=== PATIENT | male | born 1985 | race Caucasian/White ===

== ENCOUNTER 2018-12-20 09:30 | Emergency (ER) | payer MEDICAID ==
[~2018-12-20] VITALS: Ht 172.7 cm; Wt 100.7 kg
[2018-12-20 09:40] VITALS: BP 132/89; Ht 172.7 cm; Wt 100.7 kg
== END 2018-12-20 10:17 | disposition home or self-care (01) ==
LOC: ED 09:30
DX: S60.455A Superficial foreign body of left ring finger, initial encounter (principal); W49.04XA Ring or other jewelry causing external constriction, initial encounter; Y93.89 Activity, other specified; Y92.89 Other specified places as the place of occurrence of the external cause; Y99.8 Other external cause status

== ENCOUNTER 2020-06-20 10:54 | Emergency (ER) | payer OTHER ==
[~2020-06-20] VITALS: Ht 172.7 cm; Wt 104.3 kg
[2020-06-20 11:04] VITALS: Ht 172.7 cm; Wt 104.3 kg
[2020-06-20 11:36] LABS: microscopic required? NO
[2020-06-20 11:59] LABS: urine erythrocyte NEGATIVE (NEGATIVE)
[2020-06-20] MEDS ORDERED: NAPROSYN500 MG PO (12:33)
[2020-06-20] MEDS ORDERED: ULTRAM50 MG PO (12:33)
[2020-06-20 12:51] VITALS: BP 128/74
== END 2020-06-20 12:51 | disposition home or self-care (01) ==
LOC: ED 10:54
PROVIDERS: Emergency Medicine
DX: M54.41 Lumbago with sciatica, right side (principal)
CPT/HCPCS: J1885